=== PATIENT | male | born 1970 | race African-American/Black ===

== ENCOUNTER 2022-02-11 18:53 | Emergency (ER) | payer OTHER ==
[2022-02-11 19:01] VITALS: TEMP 98.7; BMI 29.2
[2022-02-11] MEDS ORDERED: ASPIRIN 81 MG CHEWABLE TABLETS PO ONE (20:25)
[2022-02-11] MEDS ORDERED: ASPIRIN 81 MG CHEWABLE TABLETS ONE (20:32)
[2022-02-11 21:58] LABS: BASO % 0.7 % (0-2.0); EOS % 2.7 % (0-4.5); HEMATOCRIT 42.2 % (35.4-49); HEMOGLOBIN 14.3 GM/dL (11.7-16.9); LYMPH % 26.7 % (8-40); MCH 31.9 pg (25.7-33.7); MCHC 33.7 g/dl (32.0-35.9); MEAN CELL VOLUME 94.6 fl (80-96); MEAN PLT VOLUME 6.8 fl (7.5-11.1); MONO % 9.9 % (3.8-10.2); PLATELET COUNT 198 10^3/uL (134-434); RBC 4.47 M/mm3 (4.00-5.60); WHITE BLOOD COUNT 4.3 K/mm3 (4.0-10.0)
[2022-02-11 22:17] LABS: CALCIUM 9.1 mg/dL (8.5-10.1)
[2022-02-11 22:18] LABS: ALBUMIN 3.9 g/dl (3.4-5.0)
[2022-02-11 22:23] LABS: BILIRUBIN,TOTAL 0.5 mg/dL (0.2-1); TOT PROT 6.9 g/dl (6.4-8.2)
[2022-02-11 23:49] VITALS: BP 125/86; PULSE 71
== END 2022-02-11 23:50 | disposition home or self-care (01) ==
LOC: JER 18:53
DX: R07.9 Chest pain, unspecified (principal)
CPT/HCPCS: 36415; 71045-TC-FY; 80053; 84484; 85025; 93005; 93010; 99285-25